=== PATIENT | female | born 2005 | race Asian ===

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

== ENCOUNTER 2024-10-29 18:11 | Emergency (ER) | payer OTHER, BC, SELFPAY ==
--- NOTE | ~2024-10-29 | XR_ITS ---
EXAM: XR lumbar spine 2-3V DATE: 10/29/2024 19:00 HISTORY: pain with trauma . COMPARISON: None available. FINDINGS: Scoliosis. 5 nonrib-bearing lumbar-type vertebral bodies. Pedicles intact. Normal vertebral body alignment. Vertebral body heights preserved. Disc spaces maintained. Normal facets and posterio r elements. No fracture or dislocation. Slight anterior angulation/displacement of the coccygeal blackfeet ents at the sacrococcygeal junction. IMPRESSION: No acute fracture or traumatic malalignment detected in the lumbar spine. If pain persists or clinica l suspicion of injury is high, recommend CT or MRI of the lumbar spine. Slight anterior angulation/displacement of the coccygeal elements, which may be normal for this patie nt or secondary to trauma if there is acute tailbone pain or consistent mechanism of injury. Reviewed, dictated and finalized at [facility]. IMPRESSION: No acute fracture or traumatic malalignment detected in the lumbar spine. If pa in persists or clinical suspicion of injury is high, recommend CT or MRI of the lumbar spine. Slight anterior angulation/displacement of the coccygeal elements, which may be normal for this patient or secondary to trauma if there is acute tailbone pain or consistent mechanism of injury.
[2024-10-29 18:26] VITALS: BP 117/59; PULSE 94; RESP 16; TEMP 36.6; O2SAT 99
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
== END 2024-10-29 19:26 | disposition home or self-care (01) ==
PROVIDERS: Emergency Provider Nurse Practitioner Family; PCP Family Medicine
DX: M54.50 Low back pain, unspecified (principal)
CPT/HCPCS: 72100; 99213; G0463

== ENCOUNTER 2025-01-22 16:34 | Emergency (ER) | payer BC, SELFPAY ==
--- NOTE | ~2025-01-22 | XR_ITS ---
EXAMINATION: XR knee RT min 4V, 01/22/2025 16:58 CDT HISTORY: fall, hit knee, pain, previous surgery. COMPARISON: No comparisons available. Findings: No acute fracture or malalignment. No significant degenerative changes. Soft tissues unremarkable. Impression: No acute fracture or malalignment. Reviewed, dictated and finalized at location P. Impression: No acute fracture or malalignment.
[2025-01-22 16:46] VITALS: BP 125/76; PULSE 68; RESP 16; TEMP 36.6; O2SAT 100
--- NOTE | 2025-01-22 16:56 | ED.LOWEXIN ---
HPI - Extremity Injury (Lower) General Chief Complaint: Extremity Injury, Lower Stated Complaint: R KNEE PAIN Time Seen by Provider: 01/22/25 16:38 Source: patient Mode of arrival: ambulatory Limitations: no limitations History of Present Illness HPI Narrative: Patient is a 19-year-old female who presents with right knee pain for 2 days. Patient states she fell a bed and hit knee on a stool. Same day she felt a pop in the same knee. Now having pain throughout the entire knee. Did have surgery 2 years ago on injured knee. Has been using her home knee brace. Related Data Home Medications ?Medication ?Instructions ?Recorded ?Confirmed ?Last Taken ?Type mecobalamin (vitamin B12) 1,000 1,000 mcg PO DAILY 10/26/24 10/29/24 Unknown History mcg chewable tablet Allergies Allergy/AdvReac Type Severity Reaction Status Date / Time No Known Allergies Allergy Mild Verified 01/05/25 13:39 Review of Systems Review of Systems: All systems reviewed & are unremarkable except as noted in HPI and below Constitutional: Constitutional: Denies body ache(s), Denies chills, Denies fatigue, Denies fever(s), Denies headache(s), Denies malaise and Denies weakness Eyes: Eyes: Denies blurry vision, Denies irritation and Denies loss of vision ENT: Denies otalgia, Denies headache(s), Denies nasal discharge, Denies sinus pain and Denies sore throat Cardiovascular: Cardiovascular: Denies chest pain, Denies irregular heart rhythm and Denies dyspnea Respiratory: Respiratory: Denies dyspnea Gastrointestinal: Gastrointestinal: Denies abdominal pain, Denies melena, Denies hematochezia, Denies diarrhea, Denies nausea and Denies vomiting Musculoskeletal: Musculoskeletal: Denies back pain, Denies myalgias and Reports arthralgias Integumentary/Breasts: Skin/Breast: Denies pruritus and Denies rash Neurologic: Denies headache(s), Denies loss of vision and Denies weakness Psychiatric: Psychiatric: Reports no additional psychiatric complaints Endocrine: Endocrine: Denies fatigue PMFSH Past Medical History Medical History Posterior right knee pain Right knee injury Surveillance for Depo-Provera contraception Idiopathic scoliosis Ggub-niagyq-cqseblg syndrome type 1 Surgical History Surgical History [place] teeth removed H/O adenoidectomy Hx of tonsillectomy H/O eye surgery 6 mo, 10mo, 18 mo History of oral surgery (~2014) History of hip surgery (~2014) Social History Social History Smoking status: Never smoker Second hand tobacco smoke exposure: No Alcohol intake: never Substance use: never Lack of Transportation: No Lack of Food: Never True Current Housing: I Have Housing Concerned About Future Housing: No Difficulty Paying Gas/Electric Bills: No Difficulty Paying for Meds: No Currently Unemployed: No Education: High School Diploma/GED Difficulty w/ Childcare or Family Care: No Living arrangements: with family Occupation/Education: student Gender identity (if verbalized by the patient): Female Sexual Orientation (if Verbalized by the Patient): Straight or Heterosexual Comments At time of signature, agree with nursing past medical, surgical, social and family history. There is no relevant family history pertinent to the presenting complaint. Exam Const: General: cooperative, healthy appearing, comfortable, no acute distress and well nourished Nutritional Appearance: well nourished Orientation/consciousness: patient oriented x3 Limitations: no limitations HENMT: Head: normal to inspection, normocephalic and atraumatic Ears: hearing grossly normal bilaterally and external ears normal Face/Nose/Sinus: Normal external nose present, normal facial exam and face symmetric Face and sinus: normal facial exam and face symmetric Mouth: Yes lip normal Eyes: General: appearance normal, both eyes and all related structures Alignment and Position: alignment normal and position normal Periorbital: periorbital findings normal Eyelids: eyelids normal Pupils: Equal, round and reactive pupils present EOM: EOMs intact bilaterally Neck: Neck: normal visual inspection, full ROM and supple Chest: Chest palpation & inspection: normal inspection of the chest Resp: Effort & Inspection: normal respiratory effort and able to speak in complete sentences Auscultation: clear to auscultation bilaterally Cardio: Rate: regular rate Rhythm: regular rhythm Heart sounds: S1 normal heart sound present and S2 normal heart sound present GI: Inspection: normal to inspection Skin: General skin exam: normal color and no rashes or lesions noted Neuro: General: patient oriented x3 and moves all extremities Cranial nerves: Yes Equal, round and reactive pupils present Speech: normal speech Gait exam (Neuro): Normal gait present Extrem: General: normal to inspection, full ROM and no edema Right lower extremity: hip/thigh Details: normal to inspection and normal ROM; no tenderness and no swelling, knee Details: normal to inspection, tenderness Location: of the popliteal fossa, of the medial joint line and of the lateral joint line, normal ROM and knee ligament exam normal; no swelling and no ecchymosis and ankle Details: normal to inspection and normal ROM; no tenderness, no swelling and achilles tendon exam normal Psych: Appearance: grossly normal and well kempt Mental Status: mental status grossly normal Speech and movement: Normal speech and movement present Affect: normal affect Attitude: cooperative Thought process: Normal thought process present Course Course Emergency Course: Patient is aware of diagnosis, understands and agrees to treatment plan. Anticipatory guidance given. Patient agrees to follow-up as directed and is aware of reasons to seek care at the emergency department. Portions of this record may have been created with voice recognition software Level of Care: Express Care Visit Vital Signs Vital signs: Vital Signs Temperature 36.6 C 01/22/25 16:46 Pulse Rate 68 01/22/25 16:46 Respiratory Rate 16 01/22/25 16:46 Blood Pressure 125/76 01/22/25 16:46 Pulse Oximetry 100 01/22/25 16:46 Temperature 36.6 C 01/22/25 16:46 Pulse Rate 68 01/22/25 16:46 Respiratory Rate 16 01/22/25 16:46 Blood Pressure 125/76 01/22/25 16:46 Pulse Oximetry 100 01/22/25 16:46 Reviewed MDM - Extremity Injury (Lower) MDM Narrative Medical decision making narrative: Patient is able to bear weight and ambulate with mild pain. No surface of trauma or obvious effusion. No overlying erythema or warmth. The R knee is without obvious asymmetry or deformity when comparing to the L. Fully extended knee, internal and external rotation. Nontender to palpate of the patella, no effusion. Nontender over the infrapatellar tendon.. tender over the medial or lateral joint line Nontender over the proximal fibular head. tender, no fullness or mass of the popliteal fossa. NO quadriceps tenderness. No laxity of the ACL, PCL, MCL, LCL. Distal motor and neurovascular status intact. Patient has home brace in place Pt well hydrated appearing, in no respiratory distress, hemodynamically stable. Recommend supportive care. The patient is stable at time of discharge the clinical impression was discussed and the patient was given the opportunity to ask questions, which were addressed as completely as possible given the information available at present. Anticipatory guidance and return to care precautions were discussed and the importance of primary care follow-up was stressed and encouraged. The patient voiced understanding of the plan, indications to return, and the need for follow-up. Exam findings show no acute concerns or changes Patient is appropriate for outpatient treatment and follow-up. Differential Diagnosis Differential diagnosis: Likely acute internal derangement of knee Medical Records Attestation: I reviewed the patient's medical records. Discharge Plan Discharge Clinical Impression: Knee sprain Qualifiers: Encounter type: initial encounter Laterality: right Patient Disposition: Home Condition: Stable Instructions: Knee Sprain (ED) Additional Instructions: Xray showed no fracture. Minimize activities that aggravate the condition The RICE protocol. Follow the RICE protocol as soon as possible after your injury: Rest your knee by not walking on it. Ice should be immediately applied to keep the swelling down. It can be used for 20 to 30 minutes, three or four times daily. Do not apply ice directly to your skin. Compression dressings, bandages or angélica-wraps will immobilize and support your injured knee. Elevate your knee above the level of your heart as often as possible during the first 48 hours. Medication: Nonsteroidal anti-inflammatory drugs (NSAIDs) such as ibuprofen and naproxen can help control pain and swelling. Because they improve function by both reducing swelling and controlling pain, they are a better option for mild sprains than narcotic pain medicines. Please schedule a follow-up visit with your personal physician for further evaluation and treatment within 1week OR If your symptoms persist, change or worsen significantly before you can contact your personal physician then please, without delay, go to the emergency department for further evaluation. Patient Language: Ukrainian Prescriptions: No Action Nexplanon 68 mg implant 1 implant subdermal ONCE PRN (Reason: contraception management) Qty: 1 0RF mecobalamin (vitamin B12) 1,000 mcg tablet,chewable 1,000 mcg PO DAILY Follow-up/Referrals: Venita Mcnamara MD [Primary Care Provider, Family Practice] - 3 Days Stand Alone Forms: Work/School Release IP Time of Disposition: 17:24
== END 2025-01-22 17:31 | disposition home or self-care (01) ==
PROVIDERS: Emergency Provider Nurse Practitioner Family; PCP Family Medicine
DX: S83.91XA Sprain of unspecified site of right knee, initial encounter (principal); W06.XXXA Fall from bed, initial encounter
CPT/HCPCS: 73564; 99213; G0463